=== PATIENT | male | born 1995 | race Caucasian/White ===

== ENCOUNTER 2017-10-22 09:53 | Day surgery (SDC) | payer OTHER ==
[2017-10-22] MEDS ORDERED: ALEVE220 M1 PO (14:56)
[2017-10-22] MEDS ORDERED: DUI500 PO (14:56)
[2017-10-22] MEDS ORDERED: PERCOCET 5-3251 EACH PO (14:56)
== END 2017-10-22 19:50 | disposition home or self-care (01) ==
LOC: CIR.AMB 09:53
DX: S92.352G Displaced fracture of fifth metatarsal bone, left foot, subsequent encounter for fracture with delayed healing (principal)